=== PATIENT | female | born 1985 | race Caucasian/White ===

== ENCOUNTER → 2016-09-05 | Outpatient (REF) | payer OTHER | LOC: M LAB REF 16:35 | PROVIDERS: ATTEND Neurological Surgery | DX: Z01.818 Encounter for other preprocedural examination (principal) ==

== ENCOUNTER → 2016-09-19 | Outpatient (CLI) | payer OTHER ==
[~2016-09-19] MED LIST: IMIT100T PO
--- NOTE | 2016-09-19 12:42 | REP ---
Chest two views HISTORY: Preop Comparison: None The lungs are clear. The heart is normal in size. The pulmonary vasculature is normal in appearance. The bony structure is intact. IMPRESSION: No acute disease. Signed by Tato Joseph MD 09/19/2016 12:33 P
--- NOTE | 2016-09-19 12:54 | ECGEPIP ---
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
[2016-09-19 12:55] LABS: BASO % 0.8 % (0.0-1.0); EOS # 0.2 K/mm3 (0.0-0.50); EOS % 2.2 % (0.0-3.0); LARGE UNSTAINED CELL # 0.1 K/mm3 (0.0-0.4); LARGE UNSTAINED CELL % 1.5 % (0.0-4.0); LYMPH # 1.8 K/mm3 (1.5-6.5); LYMPH % 26.3 % (24.0-44.0); MEAN CORPUSCULAR HEMOGLOBIN 30.5 pg (27.0-33.0); MEAN CORPUSCULAR HGB CONC 33.3 g/dl (32.0-36.5); MEAN CORPUSCULAR VOLUME 91.4 fl (80.0-96.0); MONO # 0.4 K/mm3 (0.0-0.8); MONO % 5.4 % (0.0-5.0); NEUTROPHILS # 4.1 K/mm3 (1.8-7.7); NEUTROPHILS % 63.8 % (36.0-66.0); PLATELET COUNT, AUTOMATED 170 k/mm3 (150-450); RED CELL DISTRIBUTION WIDTH 12.5 % (11.5-14.5); WHITE BLOOD COUNT 6.5 K/mm3 (4.0-10.0)
[2016-09-19 13:06] LABS: INR 1.02
[2016-09-19 13:44] LABS: ALBUMIN 3.9 GM/DL (3.2-5.2); ALBUMIN/GLOBULIN RATIO 1.34 (1.00-1.93); ALKALINE PHOSPHATASE 69 U/L (45-117); ALT/SGPT 18 U/L (12-78); ANION GAP 6 MEQ/L (8-16); AST/SGOT 18 U/L (15-37); BILIRUBIN,TOTAL 0.5 MG/DL (0.2-1.0); BLOOD UREA NITROGEN 13 MG/DL (7-18); CARBON DIOXIDE LEVEL 31 MEQ/L (21-32); CHLORIDE LEVEL 105 MEQ/L (98-107); CREATININE FOR GFR 0.71 MG/DL (0.55-1.02); GLOMERULAR FILTRATION RATE > 60.0 (>60); GLUCOSE, FASTING 53 MG/DL (70-105); POTASSIUM SERUM 3.9 MEQ/L (3.5-5.1); SODIUM LEVEL 142 MEQ/L (136-145); TOTAL PROTEIN 6.8 GM/DL (6.4-8.2)
== END ==
LOC: M LAB 11:20
PROVIDERS: ATTEND Neurological Surgery
DX: Z01.818 Encounter for other preprocedural examination (principal)

== ENCOUNTER 2016-09-28 06:20 | Inpatient (IN) | payer OTHER ==
[~2016-09-28] VITALS: Ht 157.5 cm; Wt 60.7 kg
[2016-09-28] VITALS (11 sets, daily range): BP systolic 103–118; BP diastolic 60–71
[2016-09-28] MEDS ORDERED: dexameTHASONE 4 MG/ML 1ML VIAL (J1100) IV ONE (06:45)
[2016-09-28] MEDS ORDERED: CLINDAMYCIN 600 MG in APPROPRIATE DILUENT 1 EA IV ONE (06:45)
[2016-09-28] MEDS ORDERED: LR 1,000 ML IV SCH ×2 (06:45→14:15)
[2016-09-28] MEDS ORDERED: PROPOFOL 200 MG/20 ML VIAL As Ordered ONE ×2 (07:10→07:25)
[2016-09-28] MEDS ORDERED: ONDANSETRON 4MG/2ML VIAL (J2405) As Ordered ONE ×2 (07:10→12:54)
[2016-09-28] MEDS ORDERED: ROCURONIUM BROMIDE 50 MG/5 ML VIAL As Ordered ONE (07:10)
[2016-09-28] MEDS ORDERED: LIDOCAINE 2% INJ 100 MG/5 ML SDV (FOR ANES.) As Ordered ONE (07:10)
[2016-09-28] MEDS ORDERED: dexameTHASONE 4 MG/ML 1ML VIAL (J1100) As Ordered ONE (07:13)
[2016-09-28] MEDS ORDERED: fentaNYL 100 MCG/2 ML INJECTION (J3010) As Ordered ONE ×2 (07:14→10:54)
[2016-09-28] MEDS ORDERED: MIDAZOLAM INJ 2 MG/2 ML VIAL (J2250) As Ordered ONE (07:15)
[2016-09-28] MEDS ORDERED: BACITRACIN PWD 50,000 UNITS VIAL As Ordered ONE (07:20)
[2016-09-28] MEDS ORDERED: THROMBIN SOLN 20,000 UNITS KIT As Ordered ONE (07:20)
[2016-09-28] MEDS ORDERED: PROPOFOL 500 MG/50 ML VIAL As Ordered ONE ×4 (07:26→11:44)
[2016-09-28] MEDS ORDERED: REMIFENTANIL 1MG 3ML VIAL As Ordered ONE ×3 (07:34→12:11)
[2016-09-28 07:42] LABS: CONTROL LINE UCG INT CTR LINE PRESENT
--- NOTE | 2016-09-28 08:32 | REP ---
Clinical: Arnold Chiari syndrome. Technique: AP, lateral, flexion/extension, bilateral oblique, and open-mouth views. Findings: Alignment and lordosis is maintained. There is no evidence for acute fracture / compression injury or subluxation. No significant degenerative changes are appreciated. Oblique views demonstrate patent neural foramen. Open mouth view demonstrates normal C1-C2 articulation and odontoid process. Impression: Normal cervical spine series. Signed by Jeff Estrada MD 09/28/2016 08:21 A
--- NOTE | 2016-09-28 08:48 | HPE ---
DATE OF ADMISSION: 09/28/2016 HISTORY OF PRESENT ILLNESS: Eve is a pleasant, 31-year-old, right handed female, nonsmoker, with a history of Chiari malformation type I who has decided to undergo bilateral suboccipital craniectomy hoping for improvement of her symptoms. She is accompanied by her 4-year-old son today. She states she was diagnosed with Chiari malformation type I in November. She has had symptoms of right sided headache with occasional double or blurred vision, nausea and cough productive of mucus, dizziness, photo sensitivity and difficulty swallowing thought to be due to hypersensitive gag reflex. She reports choking on food on occasion, but not frequently. She attributes this to her enlarging, low lying tonsils. She describes the headache pain as her head is on fire and sometimes with increased pressure. It seems these symptoms last for days. Onset and frequency of the headaches varies with activities. She reports trying many prescriptions for the headache pain relief and often unsuccessful. Only hot showers provide mild relief of symptoms. She notices a subtle weakness of her left arm and leg when working out in the gym. She reports a history of chest pain and shortness of breath when she has concluded her work out and she states there have been no findings. She states her chest pain is mainly on the left side and describes it as a sharp stabbing pain. These episodes occur about two times per week and the duration varies. It can occur with activity or rest. She is unsure if these episodes are related to anxiety. She denies any recent illnesses, fevers, night sweats, sudden onset of weakness, fatigue, weight loss or gain, change in energy, bladder or bowel incontinence, vomiting, or diarrhea. She does not take any blood thinners and has been avoiding the use of NSAIDS within the past two weeks in anticipation of this upcoming surgery. She has not received general anesthesia in the past. MEDICATIONS PRIOR TO THIS VISIT: - Imitrex 25 mg one tablet as necessary - ibuprofen as needed ALLERGIES: - PENICILLIN - BACTRIM PAST MEDICAL HISTORY: Problem List: 1. Spinal bifida without hydrocephalus. 2. Cervical occipital neuralgia. 3. Cervical spondylosis. 4. Lumbar spondylosis. 5. Sacroiliitis. 6. Carpal tunnel syndrome. 7. Lesion of ulnar nerve. HEALTH MAINTENANCE: Negative for influenza vaccinations. She denies a past medical history of hypertension, seizure, blood clot, anemia or other blood disorders, lung disorders, diabetes, or thyroid symptoms. FAMILY HISTORY: Mother: Alcoholism and smoker. Father: Unknown. Maternal Grandmother: Cardiac aneurysm at age 34. Maternal Grandfather: Hypertension, heart disease and diabetes. Brother: Stage IV Hodgkin's lymphoma. Children: Three, healthy. 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 She lives at home with her three children. She is a nonsmoker and has never smoked. Reports drinking alcohol socially; maybe twice a month. She denies use of any illicit drugs. SURGICAL HISTORY: 1. Dilation and curettage (D and C) in 2007. 2. section in 2008, 2011. 3. [place] tooth extraction in 1999. 4. Cyst removal in 2009. REVIEW OF SYSTEMS: CONSTITUTIONAL: She denies fever or chills or any recent illnesses. EYES: See history of present illness (HPI). THROAT: She reports difficulty swallowing at times with food, not with water. CARDIOVASCULAR: See HPI. RESPIRATORY: Denies respiratory symptoms. GASTROINTESTINAL (GI): Denies nausea, vomiting and abdominal pain. SKIN: No rashes or lesions. NEUROLOGIC: See HPI. PSYCHIATRIC: Reports history of anxiety and depression, but denies being diagnosed with this. HEMATOLOGIC: Denies easy bruising. VITAL SIGNS: Blood pressure 196/73, pulse 78, height 62 inches, weight 130 pounds, body mass index (BMI) 23.8. PHYSICAL EXAMINATION: CONSTITUTIONAL: Appears healthy and well developed. No signs of acute distress present. The patient appears her stated age. HEAD: Atraumatic, normocephalic. Normal head movement and normal facial development on inspection. EYES: Vision is grossly normal on gross visual field and confrontation shows no abnormalities. Extraocular movements are brisk with nystagmus on the left in horizontal gaze. Conjunctivae clear. No discharge from the eyes. Sclerae nonicteric. NECK: Supple. Full range of motion. No swelling lymphadenopathy. HEENT: Midline. Mallampati score of 3. There are no loose teeth. RESPIRATORY: Rate normal. Clear to auscultation. CARDIOVASCULAR: Rate is regular, rhythm is regular. No murmurs detected. No peripheral edema, ecchymosis or lesions. Radial and dorsalis pedis pulses are 2 + bilaterally. ABDOMEN: No bulging. Abdomen is flat, soft and nontender. No abdominal masses palpable. SKIN: Warm and dry with no evidence of any rashes or lesions. NEUROLOGICAL EXAMINATION: Mental Status: Alert and oriented times three. Mood is normal. Affect is normal. Memory is grossly intact. Attention is within normal limits. Speech is articulate and fluent. Thought processes appear clear and approriate. Cranial nerves II-XII are grossly intact with the exception of the extraocular movements. Motor System: No pronator drift. Reflexes: Upper extremity deep tendon reflexes are symmetric bilateral. Lower extremity deep tendon reflexes are normal and symmetric bilaterally. Plantar reflexes downgoing bilaterally. Hodge's sign is negative bilaterally. Coordination: Normal rapid alternating movements is performed well with no coordination difficulty. Sensation: Sensation intact to light touch and vibration. Sensation is decreased to sharp on plantar aspect of the feet. Vibration sensation is intact. Heel to toe and tandem walk were normal. Romberg testing negative. Affect: Cooperative. Mood normal. Affect is normal. IMAGING: MRI of the brain performed in March 2016 demonstrates a 7.5 mm tonsillar ectopia consistent with Arnold-Chiari type malformation. ASSESSMENT: 1. Arnold-Chiari syndrome without spinal bifida or hydrocephalus. CARE PLAN: 1. Patient is admitted to undergo a bilateral occipital craniectomy excision of posterior wall of the foramen magnum, C1 and possible C2 laminectomies with or without dural graft and possible decompression of C2 sensory ganglia tomorrow, 09/29/2016. The preoperative blood work has been ordered. Her surgical options were once again discussed with her. She understands surgery is not curative and that she may require multiple surgeries in the future. She understands that no guarantees can be given of any kind and aware of the scope, expected outcome, sequelae and all possible risks of surgery. The risks of surgery discussed, including but not limited to, , CSF leak, meningitis, seizure disorder, persistent medicated state, loss of bodily functions, dependency on life support, persistent or worsening of symptoms or deficit, failure of surgery, need for multiple surgeries, infection, bleeding, blood clots, CVA, loss or injury of vital structures, loss of swallowing, need for feeding tube, or catastrophic sequelae. The patient wishes to proceed with surgery. Arrangements have been made. LANEY
[2016-09-28] MEDS ORDERED: PHENYLephrine HCL 500 MCG/5 ML (100MCG/ML) SYRINGE (J2370) As Ordered ONE (09:21)
[2016-09-28] MEDS ORDERED: methylPREDNISolone SUSP 40 MG/ML (DEPO-medrol) VIAL (J1030) As Ordered ONE (12:08)
[2016-09-28] MEDS ORDERED: GLYCOPYRROLATE INJ 0.2 MG/ML 2 ML VIAL As Ordered ONE (12:38)
[2016-09-28] MEDS ORDERED: NEOSTIGMINE 1MG/ML 5 ML SYRINGE (J2710) As Ordered ONE (12:38)
[2016-09-28] MEDS ORDERED: KCL 20MEQ IN D5/.45NACL 1000ML As Ordered ONE (13:02)
[2016-09-28] MEDS ORDERED: HYDROmorphone HCL 1 MG/ML SYRINGE (J1170) As Ordered ONE ×2 (13:43→13:56)
[2016-09-28] MEDS: HYDROmorphone HCL 1 MG/ML SYRINGE (J1170) IV PRN ×5 (13:45→14:10)
[2016-09-28] MEDS ORDERED: ONDANSETRON 4MG/2ML VIAL (J2405) IV PRN (14:15)
[2016-09-28] MEDS ORDERED: fentaNYL 100 MCG/2 ML INJECTION (J3010) IV PRN (14:15)
[2016-09-28] MEDS: KCL 20MEQ IN D5/0.45NS 1000ML 1,000 ML IV SCH ×2 (14:45→22:25)
[2016-09-28] MEDS: ONDANSETRON 4MG/2ML VIAL (J2405) IV PRN ×2 (15:38→22:25)
[2016-09-28] MEDS: CLINDAMYCIN 600 MG in APPROPRIATE DILUENT 1 EA IV SCH (15:39)
[2016-09-28] MEDS ORDERED: PROCHLORPERAZINE 10 MG/2 ML VIAL (J0780) IM ONE (19:00)
[2016-09-28] MEDS: MORPHINE 2 MG/ML 1ML SYRINGE IV PRN (19:13)
[2016-09-28] MEDS: NORCO, ANEXSIA 5/325MG TABLET (HYDROcodone/ACETAMINOPHEN) PO PRN (22:26)
[2016-09-29] VITALS (19 sets, daily range): BP systolic 85–112; BP diastolic 49–69
[2016-09-29] MEDS: CLINDAMYCIN 600 MG in APPROPRIATE DILUENT 1 EA IV SCH ×2 (00:07→08:14)
[2016-09-29] MEDS: MORPHINE 2 MG/ML 1ML SYRINGE IV PRN (01:04)
[2016-09-29] MEDS: NORCO, ANEXSIA 5/325MG TABLET (HYDROcodone/ACETAMINOPHEN) PO PRN ×2 (05:02→13:10)
[2016-09-29 05:23] LABS: MEAN CORPUSCULAR HGB CONC 33.5 g/dl (32.0-36.5); MEAN CORPUSCULAR VOLUME 89.4 fl (80.0-96.0); RED CELL DISTRIBUTION WIDTH 12.4 % (11.5-14.5); WHITE BLOOD COUNT 16.4 K/mm3 (4.0-10.0)
[2016-09-29 05:41] LABS: ALBUMIN 3.5 GM/DL (3.2-5.2); ALBUMIN/GLOBULIN RATIO 1.13 (1.00-1.93); ALKALINE PHOSPHATASE 55 U/L (45-117); ALT/SGPT 16 U/L (12-78); ANION GAP 7 MEQ/L (8-16); AST/SGOT 20 U/L (15-37); BILIRUBIN,TOTAL 0.5 MG/DL (0.2-1.0); BLOOD UREA NITROGEN 7 MG/DL (7-18); CALCIUM LEVEL 8.1 MG/DL (8.5-10.1); CARBON DIOXIDE LEVEL 26 MEQ/L (21-32); CHLORIDE LEVEL 108 MEQ/L (98-107); CREATININE FOR GFR 0.67 MG/DL (0.55-1.02); GLOMERULAR FILTRATION RATE > 60.0 (>60); GLUCOSE, FASTING 154 MG/DL (70-105); POTASSIUM SERUM 4.3 MEQ/L (3.5-5.1); SODIUM LEVEL 141 MEQ/L (136-145); TOTAL PROTEIN 6.6 GM/DL (6.4-8.2)
[2016-09-29] MEDS: KCL 20MEQ IN D5/0.45NS 1000ML 1,000 ML IV SCH ×2 (06:19→13:09)
[2016-09-29] MEDS: ONDANSETRON 4MG/2ML VIAL (J2405) IV PRN (08:13)
[2016-09-29] MEDS ORDERED: ANEXSIA, NORCO 7.5MG/325MG TABLET(HYDROCODONE/APAP) PO ONE (15:00)
[2016-09-29] MEDS ORDERED: ACETAMINOPHEN TAB 650MG DOSE (2X325MG) PO PRN (18:45)
[2016-09-29] MEDS ORDERED: NORCO, ANEXSIA 5/325MG TABLET (HYDROcodone/ACETAMINOPHEN) PO PRN (18:45)
[2016-09-29] MEDS ORDERED: SLF 3 ML SYR IV PRN (20:00)
[2016-09-29] MEDS: SLF 3 ML SYR IV SCH (22:00)
[2016-09-30] VITALS: BP 96/53
[2016-09-30 04:00] VITALS: BP 91/51
[2016-09-30 05:27] LABS: MEAN CORPUSCULAR HEMOGLOBIN 29.5 pg (27.0-33.0); MEAN CORPUSCULAR HGB CONC 32.5 g/dl (32.0-36.5); RED CELL DISTRIBUTION WIDTH 12.6 % (11.5-14.5)
[2016-09-30 05:40] LABS: ALBUMIN 3.6 GM/DL (3.2-5.2); ALBUMIN/GLOBULIN RATIO 1.06 (1.00-1.93); ALKALINE PHOSPHATASE 56 U/L (45-117); ALT/SGPT 24 U/L (12-78); ANION GAP 10 MEQ/L (8-16); AST/SGOT 25 U/L (15-37); BILIRUBIN,TOTAL 0.4 MG/DL (0.2-1.0); BLOOD UREA NITROGEN 9 MG/DL (7-18); CALCIUM LEVEL 8.5 MG/DL (8.5-10.1); CARBON DIOXIDE LEVEL 28 MEQ/L (21-32); CHLORIDE LEVEL 105 MEQ/L (98-107); CREATININE FOR GFR 0.62 MG/DL (0.55-1.02); GLOMERULAR FILTRATION RATE > 60.0 (>60); GLUCOSE, FASTING 96 MG/DL (70-105); SODIUM LEVEL 143 MEQ/L (136-145)
[2016-09-30] MEDS: SLF 3 ML SYR IV SCH (05:51)
--- NOTE | 2016-09-30 07:07 | RO ---
DATE OF PROCEDURE: 09/28/2016 PREOPERATIVE DIAGNOSES: Arnold Chiari malformation, occipital neuralgia. POSTOPERATIVE DIAGNOSES: Arnold Chiari malformation, occipital neuralgia. PROCEDURE: Decompression of Arnold Chiari malformation with bilateral suboccipital craniectomies, excision of posterior wall foramen magnum, partial C1 laminectomy, microvascular decompression of C2 sensory ganglion for the occipital neuralgia. SURGEON: Luis Angel Perdue MD CONVERTING OPERATOR: NICOLE Carmona ANESTHESIA: General. FINDINGS: Please my office notes for detailed preoperative evaluation and discussions. Patient was seen in the preoperative area, where she was joined by one of her friends was aware of all options, risks, scope, expected outcome, sequelae, and all possible complications of the surgery. Patient understood the surgery is not curative and that the risk of surgery includes, but is not limited to, , coma, paralysis, quadriplegia, persistence or worsening of symptoms and/or deficits, failure of surgery, need for multiple surgeries, cervical instability requiring multiple other surgeries, seizure disorder, persistent vegetative state, dependency on life support measures, infection, bleeding, Pulmonary embolism (PE), myocardial infarction (OR), deep venous thrombosis (DVT), and/or any catastrophic sequelae. Patient wished to proceed with the surgery. She claimed she can no longer live with the symptoms, though she understands the surgery is not curative and there is no guarantee that any of her symptoms would be addressed. She understood the rationale for surgery os is primarily to decompress and re-establish the cerebrospinal flow across the craniovertebral junction. She understood dural graft may have to be used. After all matters pertaining to surgery, anesthesia, and followup care had been discussed and after all the surgical options were discussed, she wished to proceed with the above surgery. DESCRIPTION OF PROCEDURE: After informed consent, she was taken to the operating room, where general endotracheal anesthesia was given by the anesthesia service. There The area of surgery was prepped and draped in the usual sterile fashion. Prior to that, neurologic monitoring was used and electrodes were placed by the monitoring service. Patient was then turned prone on the operating room table with the lami rolls and head was placed in the Godoy headrest. After adequate prep and drape, a skin incision was given just beneath the occipital protuberance and extending over the C2 spinous process. The place Alveolar layer was reached and incised. Cut edges of the blood vessels were coagulated with bipolar cautery. Ligamentum nuchae was opened on either side of the midline. Suboccipital muscles were striped off the cranium, and wound edges were held apart with the help of self-retaining retractors. C1 was exposed, and the superior aspect of the lamina and the spinous process of C2 was also exposed and partially shaved to gain access of the inferior border of the C1. One bur hole was created on each suboccipital squama and a craniectomy was performed. The dura was markedly thin and the cerebellar muscle was severely compressed from bony compression. Decompression was carried till until the normal dura was seen, and no compression was seen with generous epidural space. There were no brain pulsations at this time. The posterior wall of the foramen magnum was also removed, and that caused faint pulsations in the cerebellum. C1 laminectomy was done, and that increased the pulsations of the exposed brain and the craniovertebral junction. There was thick and fibrous dural band, which was constricting with thecal sac, and this was incised and that caused much improved cerebrospinal fluid (CSF) pulsation and the spinal cord also started to pulsate; thus, no further decompression or dural grafting was felt to be necessary. Through the thinned out dura, no obvious arachnoidal scarring was seen. Attention was paid at C1-C2. The C2 sensory ganglion were exposed beneath the C1 arches on either side. There were dense veins surrounding it and compressing the ganglion. They were coagulated and moved away from these ganglions in the hope of achieving longer lasting headache control from her occipital neuralgia. Blood loss was minimal or maybe less than 50 mL, and wound was closed in anatomic layers. Patient tolerated the procedure satisfactorily and was transferred to the recovery room in stable condition. She had no family members or friends in the waiting room. However, the friend said that she might drop by in the hospital later. Patient's neck was stabilized in the cervical collar.
[2016-09-30] MEDS: ANEXSIA, NORCO 7.5MG/325MG TABLET(HYDROCODONE/APAP) PO PRN ×2 (07:42→12:28)
[2016-09-30 08:00] VITALS: BP 108/64
[2016-09-30 12:00] VITALS: BP 106/55
[2016-09-30] MEDS ORDERED: NORC5TAB PO (16:24)
[2016-09-30] MEDS ORDERED: CIPR-250 PO (16:24)
--- NOTE | 2016-10-02 03:19 | DSES ---
DATE OF ADMISSION: 09/28/2016 DATE OF DISCHARGE: 09/30/2016 DISCHARGE DIAGNOSIS: Arnold-Chiari malformation. HISTORY: Ms. Rizo has a past medical history significant for Arnold-Chiari malformation, occipital neuralgia, cervical spondylosis, lumbar spondylosis, and sacroiliitis. Her symptoms for her Arnold-Chiari malformation include right-sided headache with occasional blurred vision, nausea, unexplained cough and dizziness, difficulty swallowing food, and photo sensitivity. We discussed all possible risks for surgery regarding her Arnold-Chiari malformation. She wishes to proceed with surgery. PROCEDURE PERFORMED: On 09/28/2016, bilateral suboccipital craniectomy, excision of posterior wall foramen magnum, partial C1 laminectomy, microvascular decompression of C2 sensory ganglion. DIAGNOSTIC DATA: On 09/28/2016, C-spine with AP flexion and extension views showed normal cervical spine series. On 09/30/2016, chemistries were all within normal limits, white blood cells were kind of elevated, otherwise hematology was within normal limits. UPEG preoperative was negative. HOSPITAL COURSE: Patient was admitted to intensive care unit (ICU) following her surgery. Her hospital course was uneventful. She had no gross focal motor deficits noted on exam. She remained afebrile. She denies any postoperative symptoms. She has been cleared for discharge to home. DISCHARGE MEDICATIONS: Her preadmission medications as well as Cipro 250 mg by mouth twice a day times five days, and Percocet 5/325 one tablet every eight hours as needed for pain. DISCHARGE INSTRUCTIONS: The following discharge instructions have been discussed with the patient. 1. Keep area of incision and bandage completely dry until two week followup in the office. 2. Monitor for signs and symptoms of infection as discussed. 3. Patient is to call the office to schedule followup appointment, for any symptoms or any questions. 4. Patient is to continue preadmission medications as well as any new medications as discussed, Cipro and Percocet. 5. Diet as tolerated. 6. Activity as tolerated. 7. Take temperature twice a day. Call if temperature is greater than or equal to 100 degrees Fahrenheit. 8. No driving for two weeks. 9. Keep cervical collar on. 10. Seizure precautions. Patient states she cannot comply to these recommendations. She understands and is aware of possible catastrophic sequelae if she does not follow them. She does agree to followup within two weeks or sooner if needed.
== END 2016-09-30 16:40 | disposition home or self-care (01) | DRG 27 ==
LOC: M OR 06:20 → M ICU 15:00
PROVIDERS: ADMIT Neurological Surgery; ATTEND Neurological Surgery
PROC: 0PB30ZZ Excision of Cervical Vertebra, Open Approach (ICD-10-PCS; 2016-09-28)
PROC: 00B20ZZ Excision of Dura Mater, Open Approach (ICD-10-PCS; principal; 2016-09-28 07:30)
DX: Q07.00 Arnold-Chiari syndrome without spina bifida or hydrocephalus (principal); M54.81 Occipital neuralgia; Z88.0 Allergy status to penicillin; Z88.8 Allergy status to other drugs, medicaments and biological substances; Z68.23 Body mass index [BMI] 23.0-23.9, adult

== ENCOUNTER 2017-04-17 19:37 | Emergency (ER) | payer OTHER, SELFPAY ==
[~2017-04-17] VITALS: Ht 157.5 cm; Wt 63.2 kg
[~2017-04-17 19:37] MED LIST changes: +CIPR-250 PO; +NORC1TAB4 PO
[2017-04-17] MEDS ORDERED: IBUP1TAB7 PO (19:56)
[2017-04-17 20:53] LABS: BASO # 0.1 10^3/uL (0.0-0.2); BASO % 1.2 % (0.0-1.0); EOS # 0.2 10^3/uL (0.0-0.50); EOS % 2.6 % (0.0-3.0); IMMATURE GRANULOCYTE % 0.4 % (0-0); LYMPH % 38.4 % (24.0-44.0); MEAN CORPUSCULAR HEMOGLOBIN 30.2 pg (27.0-33.0); MEAN CORPUSCULAR HGB CONC 34.1 g/dl (32.0-36.5); MEAN CORPUSCULAR VOLUME 88.5 fl (80.0-96.0); MONO # 0.5 10^3/uL (0.0-0.8); NEUTROPHILS % 51.4 % (36.0-66.0); PLATELET COUNT, AUTOMATED 225 10^3/uL (150-450); RED CELL DISTRIBUTION WIDTH 13.1 % (11.5-14.5); WHITE BLOOD COUNT 7.8 10^3/uL (4.0-10.0)
[2017-04-17 21:28] LABS: ALBUMIN 3.8 GM/DL (3.2-5.2); ALBUMIN/GLOBULIN RATIO 1.19 (1.00-1.93); ALKALINE PHOSPHATASE 78 U/L (45-117); ALT/SGPT 20 U/L (12-78); ANION GAP 6 MEQ/L (8-16); AST/SGOT 14 U/L (15-37); BILIRUBIN,DIRECT 0.1 MG/DL (0.0-0.2); BILIRUBIN,TOTAL 0.3 MG/DL (0.2-1.0); BLOOD UREA NITROGEN 13 MG/DL (7-18); CALCIUM LEVEL 8.6 MG/DL (8.5-10.1); CARBON DIOXIDE LEVEL 28 MEQ/L (21-32); CHLORIDE LEVEL 107 MEQ/L (98-107); CREATININE FOR GFR 0.84 MG/DL (0.55-1.02); GLOMERULAR FILTRATION RATE > 60.0 (>60); GLUCOSE, FASTING 112 MG/DL (70-105); SODIUM LEVEL 141 MEQ/L (136-145); T UPTAKE 30 % (30-39); THYROXINE (T4) 7.2 UG/DL (4.5-12.0)
[2017-04-17 21:35] LABS: VITAMIN B12 LEVEL 401 PG/ML (247-911)
--- NOTE | 2017-04-17 21:50 | REPUSA ---
MRI of the brain. Clinical history: neuropathy. Technique: Multiecho multiplanar MRI images of the brain were obtained without administration of cont rast. Diffusion weighted images with ADC mapping was also obtained. Findings: The ventricles and sulci are symmetric bilaterally. The brain parenchyma demonstrates uniform and nor mal signal on all sequences. There is no midline shift, mass effect, or extra-axial fluid collection. The midline intracranial structures do not demonstrate any gross abnormalities. The cervical cranial junction is intact. The orbits are unremarkable. The visualized paranasal sinuses and mastoid air ce lls are clear. The osseous structures and superficial soft tissues are unremarkable. The vascular str uctures demonstrate appropriate flow voids. Impression: Normal MRI of the Brain.
[2017-04-17 22:43] VITALS: BP 106/68
== END 2017-04-17 22:43 | disposition home or self-care (01) ==
LOC: M ED 19:37
DX: G90.09 Other idiopathic peripheral autonomic neuropathy (principal); Q07.00 Arnold-Chiari syndrome without spina bifida or hydrocephalus; Z88.2 Allergy status to sulfonamides; Z88.0 Allergy status to penicillin

== ENCOUNTER 2017-04-19 12:20 | Emergency (ER) | payer OTHER ==
[~2017-04-19] VITALS: Ht 157.5 cm; Wt 61.3 kg
[~2017-04-19 12:20] MED LIST changes: +IBUP1TAB7 PO
[2017-04-19 13:21] LABS: BASO # 0.1 10^3/uL (0.0-0.2); EOS # 0.1 10^3/uL (0.0-0.50); EOS % 1.7 % (0.0-3.0); IMMATURE GRANULOCYTE % 0.3 % (0-0); LYMPH # 2.2 10^3/uL (1.5-4.5); LYMPH % 36.8 % (24.0-44.0); MEAN CORPUSCULAR HEMOGLOBIN 29.7 pg (27.0-33.0); MEAN CORPUSCULAR VOLUME 87.5 fl (80.0-96.0); MONO # 0.3 10^3/uL (0.0-0.8); MONO % 5.6 % (0.0-5.0); NEUTROPHILS # 3.2 10^3/uL (1.8-7.7); NEUTROPHILS % 54.6 % (36.0-66.0); PLATELET COUNT, AUTOMATED 206 10^3/uL (150-450); RED CELL DISTRIBUTION WIDTH 12.9 % (11.5-14.5); WHITE BLOOD COUNT 5.9 10^3/uL (4.0-10.0)
[2017-04-19 13:26] LABS: ADD MANUAL DIFFER NO; DIFF SLIDE NUMBER 240
[2017-04-19 13:40] LABS: CONTROL LINE HCG INT CTR LINE PRESENT
[2017-04-19 13:49] LABS: ALBUMIN/GLOBULIN RATIO 1.33 (1.00-1.93); ALKALINE PHOSPHATASE 59 U/L (45-117); ALT/SGPT 19 U/L (12-78); ANION GAP 6 MEQ/L (8-16); AST/SGOT 12 U/L (15-37); BILIRUBIN,TOTAL 0.6 MG/DL (0.2-1.0); BLOOD UREA NITROGEN 12 MG/DL (7-18); CALCIUM LEVEL 9.3 MG/DL (8.5-10.1); CARBON DIOXIDE LEVEL 28 MEQ/L (21-32); CHLORIDE LEVEL 105 MEQ/L (98-107); CREATININE FOR GFR 0.63 MG/DL (0.55-1.02); GLOMERULAR FILTRATION RATE > 60.0 (>60); GLUCOSE, FASTING 89 MG/DL (70-105); POTASSIUM SERUM 4.4 MEQ/L (3.5-5.1); SODIUM LEVEL 139 MEQ/L (136-145)
[2017-04-19] MEDS ORDERED: AZITHROMYCIN 250 MG TAB PO ONE (14:00)
[2017-04-19] MEDS ORDERED: cefTRIAXone SOD 250 MG VIAL (J0696) IM ONE (14:00)
[2017-04-19] MEDS ORDERED: ULIPRISTAL ACETATE 30 MG TAB (ELLA) PO ONE (14:00)
[2017-04-19] MEDS ORDERED: metroNIDAZOLE (FLAGYL) 500 MG TAB PO ONE (14:00)
[2017-04-19] MEDS ORDERED: LIDOCAINE 1% MDV 20ML VIAL As Ordered ONE (14:00)
[2017-04-19 14:05] LABS: HEPATITIS B SURFACE ANTIBODY NEGATIVE (POSITIVE)
[2017-04-19] MEDS ORDERED: TRUVTAB PO (14:37)
[2017-04-19] MEDS ORDERED: RALT40TA PO (14:37)
[2017-04-19] MEDS ORDERED: EXPOSURE KIT-ADULT 7 DAY SUPPLY PO ONE ×2 (14:45)
[2017-04-19 15:47] VITALS: BP 108/73
== END 2017-04-19 15:49 | disposition home or self-care (01) ==
LOC: M ED 12:20
DX: T76.21XA Adult sexual abuse, suspected, initial encounter (principal); G89.29 Other chronic pain; M54.2 Cervicalgia
CPT/HCPCS: 80053; 84703; 85025; 86706; 86780; 86803; 87340; 87389; 96372; 99282; J0696

== ENCOUNTER → 2017-05-03 | Outpatient (REF) | payer OTHER ==
[~2017-05-03] MED LIST changes: +RALT40TA PO; +TRUVTAB PO
[2017-05-03 14:16] LABS: FREE T4 0.83 NG/DL (0.76-1.46)
== END ==
LOC: M SFHCPLAZ 09:54
PROVIDERS: ATTEND Family Medicine
DX: R23.2 Flushing (principal); Z11.3 Encounter for screening for infections with a predominantly sexual mode of transmission; E28.319 Asymptomatic premature menopause

== ENCOUNTER → 2017-08-29 | Outpatient (REF) | payer OTHER ==
[2017-08-30 11:11] LABS: RUBELLA IgG QUALITATIVE IMMUNE (IMMUNE)
[2017-08-31 08:06] LABS: RUBEOLA IgG ANTIBODY <25.0 AU/mL (Immune >29.9)
[2017-08-31 08:06] LABS: MUMPS VIRUS IgG ANTIBODY 9.1 AU/mL (Immune >10.9)
== END ==
LOC: M SFHCPLAZ 16:07
DX: Z92.29 Personal history of other drug therapy (principal)
CPT/HCPCS: 86765

== ENCOUNTER → 2017-12-20 | Outpatient (REF) | payer OTHER, SELFPAY ==
[2017-12-20 13:28] LABS: HIV 1&2 SCREEN CENTAUR NEGATIVE (NEGATIVE)
[2017-12-20 15:02] LABS: CHLAMYDIA DNA AMPLIFICATION NEGATIVE (NEGATIVE); GC DNA AMPLIFICATION NEGATIVE (NEGATIVE)
== END ==
LOC: M SFHCPLAZ 09:53
DX: Z11.3 Encounter for screening for infections with a predominantly sexual mode of transmission (principal)
CPT/HCPCS: 36415

== ENCOUNTER 2018-08-10 20:02 | Emergency (ER) | payer MEDICAID, OTHER ==
[~2018-08-10] VITALS: Ht 157.5 cm; Wt 63.6 kg
[2018-08-10] MEDS ORDERED: KETOROLAC 30 MG/ML VIAL (J1885) IV ONE (20:45)
[2018-08-10 21:04] LABS: BASO # 0.1 10^3/uL (0.0-0.2); BASO % 0.8 % (0.0-1.0); EOS # 0.2 10^3/uL (0.0-0.50); EOS % 2.4 % (0.0-3.0); HEMOGLOBIN 14.2 g/dl (12.0-15.5); LYMPH # 3.5 10^3/uL (1.5-4.5); LYMPH % 35.6 % (24.0-44.0); MEAN CORPUSCULAR HGB CONC 33.8 g/dl (32.0-36.5); MEAN CORPUSCULAR VOLUME 88.6 fl (80.0-96.0); MONO # 0.6 10^3/uL (0.0-0.8); MONO % 5.9 % (0.0-5.0); NEUTROPHILS # 5.3 10^3/uL (1.8-7.7); NEUTROPHILS % 54.7 % (36.0-66.0); PLATELET COUNT, AUTOMATED 216 10^3/uL (150-450); RED BLOOD COUNT 4.74 10^6/uL (4.00-5.40); WHITE BLOOD COUNT 9.7 10^3/uL (4.0-10.0)
[2018-08-10 21:43] LABS: ALT/SGPT 33 U/L (12-78); BILIRUBIN,TOTAL 0.2 MG/DL (0.2-1.0); BLOOD UREA NITROGEN 19 MG/DL (7-18); CALCIUM LEVEL 8.3 MG/DL (8.5-10.1); CARBON DIOXIDE LEVEL 26 MEQ/L (21-32); CHLORIDE LEVEL 106 MEQ/L (98-107); CPK CREATINE PHOSPHOKINASE 105 U/L (26-192); CREATININE FOR GFR 0.71 MG/DL (0.55-1.30); GLOMERULAR FILTRATION RATE > 60.0 (>60); GLUCOSE, FASTING 68 MG/DL (70-100); HCG, SERUM QUANTITATIVE < 1.0 MIU/ML; MB/CK RELATIVE INDEX 0.95 (< OR =4); POTASSIUM SERUM 4.1 MEQ/L (3.5-5.1); SODIUM LEVEL 140 MEQ/L (136-145); TOTAL PROTEIN 6.8 GM/DL (6.4-8.2); TROPONIN I < 0.02 NG/ML (< 0.10)
[2018-08-10] MEDS ORDERED: KETO10TAB PO (22:22)
[2018-08-10 22:30] VITALS: BP 100/74
--- NOTE | 2018-08-11 08:18 | REP ---
Clinical: Right-sided chest pain . Comparison: 09/19/2016 . Technique: PA and lateral. Findings: The mediastinum and cardiac silhouette are normal. The lung bryant are clear and without acute consolidation, effusion, or pneumothorax. The skeletal structures are intact and normal. Impression: 1. No acute cardiopulmonary process. Electronically Signed by Jeff Estrada MD 08/11/2018 08:09 A
--- NOTE | 2018-08-12 09:10 | ECGEPIP ---
Stationary ECG Study [facility] Test Date: 2018-08-10 Pat Name: ALEK PENALOZA Department: Room: - Gender: F [employer] [address] [employer]: ct : 1985 Requested By: KIRA Slade PA-C Order Number: [id number] Reading MD: Maricruz Bledsoe Measurements Intervals [place] Rate: 72 P: 50 NH: 156 QRS: 67 QRSD: 96 T: 43 QT: 385 QTc: 423 Interpretive Statements SINUS RHYTHM WITH SINUS ARRHYTHMIA INCREASED RATE 09/19/16 Electronically Signed On 08-12-2018 9:10:04 EST by Maricruz Bledsoe
== END 2018-08-10 22:30 | disposition home or self-care (01) ==
LOC: M ED 20:02
DX: R07.1 Chest pain on breathing (principal); I49.9 Cardiac arrhythmia, unspecified; Z87.728 Personal history of other specified (corrected) congenital malformations of nervous system and sense organs; Z88.0 Allergy status to penicillin; Z88.1 Allergy status to other antibiotic agents; Z88.2 Allergy status to sulfonamides
CPT/HCPCS: 71046; 80053; 82550; 82553; 84443; 84702; 85025; 85379; 93005; 96374; 99284; J1885

== ENCOUNTER → 2018-11-06 | Outpatient (REF) | payer OTHER ==
[~2018-11-06] MED LIST changes: +KETO10TAB PO; -NORC1TAB4 PO; +NORC1TAB7 PO
[2018-11-06 14:24] LABS: ALBUMIN 3.7 GM/DL (3.2-5.2); ALT/SGPT 17 U/L (12-78); BILIRUBIN,TOTAL 0.5 MG/DL (0.2-1.0); BLOOD UREA NITROGEN 12 MG/DL (7-18); CALCIUM LEVEL 8.5 MG/DL (8.5-10.1); CARBON DIOXIDE LEVEL 28 MEQ/L (21-32); CHLORIDE LEVEL 107 MEQ/L (98-107); CREATININE FOR GFR 0.58 MG/DL (0.55-1.30); FREE T4 0.81 NG/DL (0.76-1.46); GLOMERULAR FILTRATION RATE > 60.0 (>60); GLUCOSE, FASTING 85 MG/DL (70-100); HCG, SERUM QUANTITATIVE < 1.0 MIU/ML; POTASSIUM SERUM 4.4 MEQ/L (3.5-5.1); SODIUM LEVEL 140 MEQ/L (136-145); TOTAL PROTEIN 6.7 GM/DL (6.4-8.2)
== END ==
LOC: M LAB REF 12:35
PROVIDERS: ATTEND Family Medicine Addiction Medicine
DX: N91.0 Primary amenorrhea (principal)

== ENCOUNTER → 2019-02-06 | Outpatient (REF) | payer OTHER ==
[2019-02-12 14:07] LABS: HPV HYBRID CAPTURE II Negative (Negative)
== END ==
LOC: M LAB REF 16:27
PROVIDERS: ATTEND Obstetrics & Gynecology
DX: Z12.4 Encounter for screening for malignant neoplasm of cervix (principal)

== ENCOUNTER 2019-04-11 22:47 | Emergency (ER) | payer OTHER ==
[~2019-04-11] VITALS: Ht 157.5 cm; Wt 65.9 kg
[2019-04-11] MEDS ORDERED: GNP28TAB2 PO (22:51)
[2019-04-12 00:08] LABS: BASO # 0.1 10^3/uL (0.0-0.2); BASO % 0.5 % (0.0-1.0); EOS # 0.1 10^3/uL (0.0-0.5); EOS % 0.5 % (0.0-3.0); HEMATOCRIT 36.4 % (36.0-47.0); HEMOGLOBIN 12.5 g/dl (12.0-15.5); LYMPH # 2.8 10^3/uL (1.5-5.0); MEAN CORPUSCULAR HEMOGLOBIN 30.6 pg (27.0-33.0); MEAN CORPUSCULAR HGB CONC 34.3 g/dl (32.0-36.5); MEAN CORPUSCULAR VOLUME 89.2 fl (80.0-96.0); MONO # 0.7 10^3/uL (0.0-0.8); MONO % 6.3 % (0.0-5.0); NEUTROPHILS # 7.4 10^3/uL (1.5-8.5); NEUTROPHILS % 66.4 % (36.0-66.0); PLATELET COUNT, AUTOMATED 191 10^3/uL (150-450); RED BLOOD COUNT 4.08 10^6/uL (4.00-5.40); WHITE BLOOD COUNT 11.2 10^3/uL (4.0-10.0)
[2019-04-12 00:10] LABS: ALBUMIN 3.6 GM/DL (3.2-5.2); ALT/SGPT 16 U/L (12-78); BILIRUBIN,DIRECT < 0.1 MG/DL (0.0-0.2); BILIRUBIN,TOTAL 0.2 MG/DL (0.2-1.0); BLOOD UREA NITROGEN 10 MG/DL (7-18); CALCIUM LEVEL 9.3 MG/DL (8.5-10.1); CARBON DIOXIDE LEVEL 25 MEQ/L (21-32); CHLORIDE LEVEL 105 MEQ/L (98-107); CREATININE FOR GFR 0.52 MG/DL (0.55-1.30); GLOMERULAR FILTRATION RATE > 60.0 (>60); GLUCOSE, FASTING 83 MG/DL (70-100); LIPASE 109 U/L (73-393); POTASSIUM SERUM 3.7 MEQ/L (3.5-5.1); SODIUM LEVEL 137 MEQ/L (136-145); TOTAL PROTEIN 6.6 GM/DL (6.4-8.2)
[2019-04-12] MEDS ORDERED: NS 1,000 ML IV ONE (00:30)
[2019-04-12] MEDS ORDERED: ACETAMINOPHEN 325 MG TAB PO ONE (00:30)
[2019-04-12] MEDS ORDERED: ONDANSETRON 4MG/2ML VIAL (J2405) IV ONE (00:30)
[2019-04-12] MEDS ORDERED: NORCO 5/325MG TABLET (BULK FOR ED) PO ONE (02:15)
[2019-04-12] MEDS ORDERED: NORC1TAB7 PO (02:19)
--- NOTE | 2019-04-12 02:20 | REPVR ---
PROCEDURE INFORMATION: Exam: US First Trimester, Transabdominal Exam date and time: 04/12/2019 12:55 AM Clinical history: 33 years old, female; complicated by abdominal or pelvic pain; Right lower quadrant; First trimester; Gestational age or lmp: 9w 4d; ; Additional info: R pelvic pain, severe, unknown gestation age TECHNIQUE: Imaging protocol: Real-time transabdominal obstetrical ultrasound of the maternal pelvis and a first trimester , less than 14 weeks 0 days, with image documentation. COMPARISON: CR Spine. Lumbosacral, complete 06/15/2016 3:59 PM FINDINGS: GESTATION: Gestation: Single live intrauterine corresponding to 9 weeks 4 days with PRIYA of 11/11/19. pole is identified. [place]-rump length measures 2.7 cm. Heart rate: heart rate is 169 beats per minute. No subchorionic hemorrhage is seen. MATERNAL: Uterus: Unremarkable. Cervix: Unremarkable. Right adnexa: Right ovarian cyst likely corpus luteal measuring 2.4 x 2.1 x 2.3 cm. Right ovary measures 5.0 x 5.2 x 3.0 cm. Normal vascular flow is seen in the right ovary. Left adnexa: Left ovary is unremarkable measuring 2.8 x 4.3 x 2.0 cm. Intraperitoneal: No intraperitoneal free fluid. IMPRESSION: Single live intrauterine corresponding to 9 weeks 4 days with PRIYA of 11/11/19. Followup is recommended. No subchorionic hemorrhage is seen. Right ovarian cyst likely corpus luteal measuring 2.4 x 2.1 x 2.3 cm. Electronically signed by: Unique Delgado On 04/12/2019 02:20:07 AM
[2019-04-12 02:26] VITALS: BP 103/62
== END 2019-04-12 02:43 | disposition home or self-care (01) ==
LOC: M ED 22:47
DX: O34.81 Maternal care for other abnormalities of pelvic organs, first trimester (principal); Z3A.09 9 weeks gestation of pregnancy; O99.89 Other specified diseases and conditions complicating pregnancy, childbirth and the puerperium; Q07.00 Arnold-Chiari syndrome without spina bifida or hydrocephalus; Z79.899 Other long term (current) drug therapy; Z88.0 Allergy status to penicillin; Z88.2 Allergy status to sulfonamides
CPT/HCPCS: 36415; 76801; 80048; 80076; 81001; 83690; 85025; 93976; 96374; 99284; J2405

== ENCOUNTER → 2019-04-16 | Outpatient (CLI) | payer OTHER ==
[~2019-04-16] MED LIST changes: +GNP28TAB2 PO
[2019-04-16 18:19] LABS: ALT/SGPT 16 U/L (12-78); BILIRUBIN,TOTAL 0.4 MG/DL (0.2-1.0); CREATININE FOR GFR 0.57 MG/DL (0.55-1.30); GLOMERULAR FILTRATION RATE > 60.0 (>60); LDH LACTATE DEHYDROGENASE 157 U/L (84-246); URIC ACID 2.5 MG/DL (2.6-6.0)
[2019-04-16 18:22] LABS: BASO # 0.1 10^3/uL (0.0-0.2); BASO % 0.7 % (0.0-1.0); EOS # 0.1 10^3/uL (0.0-0.5); EOS % 0.6 % (0.0-3.0); HEMATOCRIT 42.4 % (36.0-47.0); HEMOGLOBIN 14.3 g/dl (12.0-15.5); LYMPH # 2.5 10^3/uL (1.5-5.0); LYMPH % 23.3 % (24.0-44.0); MEAN CORPUSCULAR HEMOGLOBIN 30.8 pg (27.0-33.0); MEAN CORPUSCULAR HGB CONC 33.7 g/dl (32.0-36.5); MEAN CORPUSCULAR VOLUME 91.4 fl (80.0-96.0); MONO # 0.7 10^3/uL (0.0-0.8); MONO % 6.3 % (0.0-5.0); NEUTROPHILS # 7.3 10^3/uL (1.5-8.5); NEUTROPHILS % 68.3 % (36.0-66.0); PLATELET COUNT, AUTOMATED 195 10^3/uL (150-450); RED BLOOD COUNT 4.64 10^6/uL (4.00-5.40); WHITE BLOOD COUNT 10.7 10^3/uL (4.0-10.0)
[2019-04-16 18:43] LABS: HEMOGLOBIN A1c 4.9 %
[2019-04-17 09:57] LABS: RUBELLA IgG QUALITATIVE IMMUNE (IMMUNE)
[2019-04-17 10:27] LABS: HEPATITIS C VIRUS ABY INDEX 0.1 INDEX (<0.8); HIV 1&2 SCREEN CENTAUR NEGATIVE (NEGATIVE)
== END ==
LOC: M SMT 14:32
PROVIDERS: ATTEND Advanced Practice Midwife
DX: Z34.81 Encounter for supervision of other normal pregnancy, first trimester (principal); Z3A.10 10 weeks gestation of pregnancy

== ENCOUNTER → 2019-05-13 | Outpatient (REF) | payer OTHER ==
[2019-05-13 17:57] LABS: CREATININE,RANDOM URINE 30.6 MG/DL; TOTAL PROTEIN,RANDOM URINE < 5.0 MG/DL (0.0-12.0)
[2019-05-13 18:55] LABS: CHLAMYDIA DNA AMPLIFICATION NEGATIVE (NEGATIVE); GC DNA AMPLIFICATION NEGATIVE (NEGATIVE)
== END ==
LOC: M LAB REF 16:45
PROVIDERS: ATTEND Advanced Practice Midwife
DX: O34.219 Maternal care for unspecified type scar from previous cesarean delivery (principal); Z3A.00 Weeks of gestation of pregnancy not specified

== ENCOUNTER → 2019-06-03 | Outpatient (CLI) | payer OTHER ==
--- NOTE | 2019-06-03 17:26 | REP ---
OB ULTRASOUND: Real-time sonographic evaluation of the gravid uterus is performed. There is a single living intrauterine gestation. The estimated gestational age is 17 weeks 0 days. EDC 11/11/2019. Today's measurements indicate appropriate growth. BPD 37 mm 17 weeks 3 days, 66th percentile. HC 138 mm 17 weeks 1 day, 58th percentile. AC 113 mm 17 weeks 1 day, 52nd percentile. Femur length 23 mm 16 weeks 6 days, 44th percentile. HC/AC ratio 1.23 within normal range. Estimated weight 177 grams, 46th percentile. Cervix is closed and measures 2.8 cm in length. heart rate 157 beats per minute. Today's measurements indicate appropriate growth. SEEN/GROSSLY UNREMARKABLE Lateral ventricles Yes Posterior fossa Yes Upper lip Yes Four-chamber heart Yes LVOT Yes RVOT Yes Stomach Yes Cord insertion Yes Three vessel cord Yes Kidneys Yes Bladder Yes Spine No position: Breech. Placenta: Anterior and grade 0 with no previa or abruption. Amniotic fluid: Within normal limits. Electronically Signed by Cameron Madrid MD 06/05/2019 10:23 A
== END ==
LOC: M RAD 12:47
PROVIDERS: ATTEND Advanced Practice Midwife
DX: Z34.81 Encounter for supervision of other normal pregnancy, first trimester (principal)